=== PATIENT | male | born 1975 | race Caucasian/White ===

== ENCOUNTER 2023-05-10 07:47 | Outpatient (AMB) | payer OTHER, SELFPAY ==
--- NOTE | 2023-05-10 07:56 | MHC.OFFVIS ---
Intake Vital Signs 05/10/23 08:10 Height 5 ft 5 in Weight 195 lb BMI 32.4 BP 137/85 Blood Pressure Location Lt brachial Position Sitting Respiration 14 Pulse 75 Intake Visit Reasons: pre colonoscopy Intake Note: New consult for 1st pre Colonoscopy screening. Patient cc: Abdominal discomfort, acid reflex, and between diarrhea and constipation due linzess. 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 Lee He has never had a colonoscopy- Bowels- constipation- Linzess-for the past 3 months-not consistent pattern- Tried making dietary modifications Appetite is good-no acid reflux, has good coverage has made dietary modification No cardiac or respiratory issues No nausea, vomiting, hematemesis, hematochezia fever chills PFSH Family History Father Hyperlipemia Diabetes Mother No problems noted. Paternal Grandfather Diabetes Paternal Grandmother Diabetes Social History (Updated 05/10/23 @ 08:18 by Taylor Lizama PA-C) Household Members: Spouse Alcohol intake: never Patient Tobacco Use Status: Never used Tobacco Use of substances other than those prescribed or required for medical reasons: No Current occupational status: employed Review of Systems Const All systems reviewed & are unremarkable except as noted in HPI and below Card Denies chest pain and Denies dyspnea Resp Denies dyspnea GI Denies abdominal pain, Reports constipation, Reports heartburn, Denies diarrhea and Denies nausea Physical Exam Vital Signs: Last Vital Signs Pulse 75 05/10/23 08:10 Resp 14 05/10/23 08:10 BP 137/85 05/10/23 08:10 BMI result Body Mass Index 32.4 Const General: cooperative, healthy appearing and comfortable Orientation/consciousness: patient oriented x3 Limitations: no limitations Eyes Sclerae: sclerae normal Resp Effort & Inspection: normal respiratory effort and able to speak in complete sentences Auscultation: clear to auscultation bilaterally, no rales, no rhonchi and no wheezes Cardio Rate: regular rate Rhythm: regular rhythm Heart sounds: S1 normal heart sound present and S2 normal heart sound present GI Palpation (GI): Soft to palpation and nontender Auscultation: normal bowel sounds Skin General skin exam: no rashes or lesions noted Neuro General: patient oriented x3 Extrem General: Yes full ROM Psych Appearance: grossly normal and well kempt Mental Status: mental status grossly normal Speech and movement: Normal speech and movement present and Clear speech present Affect: normal affect Attitude: cooperative Thought process: Normal thought process present Thought content: Normal thought content present Insight: Good insight present (Psych) Judgement: Good judgement present (Psych) Assessment & Plan Assessment & Plan (1) 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 due for EGD Code(s): K22.70 - Do's esophagus without dysplasia Plan: EGD Do's surveillance (2) Chronic constipation: Code(s): K59.09 - Other constipation Plan: Consistent bowel regimen Maintain high-fiber diet (3) Encounter for screening colonoscopy: Code(s): Z12.11 - Encounter for screening for malignant neoplasm of colon Plan EGD- Barretts- surveillance Index screeningColonoscopy MG split prep Continue usual medication-omit metformin evening before procedures and no diabetes medications morning of procedure Orders: Orders EGD/[facility] Combo - GI Use Only Today K22.70 - Do's esophagus without dysplasia, K59.09 - Other constipation, Z12.11 - Encounter for screening for malignant neoplasm of colon Medications: New bisacodyl (Dulcolax (bisacodyl)) Take 4 tablets by mouth at 12:00pm the day before your procedure. 20 mg (4 x 5 mg) PO ONCE 4 tabs 0RF colonoscopy prep 1 day Z12.11 - Encounter for screening for malignant neoplasm of colon polyethylene glycol 3350 (Miralax) Take as directed by mouth the day before your procedure. 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
[2023-05-10 08:10] VITALS: BP 137/85; PULSE 75; RESP 14; BMI 32.4
== END 2023-05-10 08:35 | disposition home or self-care (01) ==
PROVIDERS: PCP Hospitalist; Visit Provider Physician Assistant
DX: K22.70 Barrett's esophagus without dysplasia (principal); K59.09 Other constipation; Z12.11 Encounter for screening for malignant neoplasm of colon
CPT/HCPCS: 99203

== ENCOUNTER → 2023-05-10 07:47 | Outpatient (BNVA) | payer OTHER, SELFPAY | PROVIDERS: PCP Hospitalist; Visit Provider Physician Assistant ==

== ENCOUNTER 2023-08-17 06:06 | Day surgery (SDC) | payer OTHER, SELFPAY ==
[2023-08-15 09:12] VITALS: BMI 32.4
--- NOTE | 2023-08-16 14:26 | P.CONAN_ITS ---
Documented by User: Laurie Santillan NP 08/16/23 14:26 HPI - Anesthesia Eval Consult details Narrative: 48yo M for Upper Endoscopy and Colonoscopy PMF Active Problems Active Problems: All Active Problems (Updated 05/10/23 @ 11:09 by Taylor Lizama PA-C) Diabetes (Acute) Encounter for screening colonoscopy (Acute) Chronic constipation (Acute) Do's esophagus determined by biopsy (Acute) Past Medical History Medical History Hypercholesteremia Hypertension Diabetes Family History Family History Father Hyperlipemia Diabetes Mother No problems noted. Paternal Grandfather Diabetes Paternal Grandmother Diabetes Surgical History Surgical History [place] teeth removed Hx of esophagogastroduodenoscopy Social History Social History Household Members: Spouse Alcohol intake: never Patient Tobacco Use Status: Never used Tobacco Current occupational status: employed Meds Allergies Allergy/AdvReac Type Severity Reaction Status Date / Time No Known Allergies Allergy Verified 08/17/23 06:50 Home Medications Medication Instructions Recorded Confirmed Last Taken Type atorvastatin 20 mg tablet 20 mg PO BEDTIME 05/10/23 08/17/23 Unknown History empagliflozin 10 mg tablet 10 mg PO DAILY 05/10/23 08/17/23 Unknown History (Jardiance) esomeprazole magnesium 20 mg 20 mg PO DAILY 05/10/23 08/17/23 Unknown History capsule,delayed release (Nexium) fluticasone propionate 50 1 spray intranasal BID 05/10/23 08/17/23 Unknown History mcg/actuation nasal spray,suspension (Flonase Allergy Relief) linaclotide 72 mcg capsule 72 mcg PO DAILY 05/10/23 08/17/23 Unknown History (Linzess) lisinopril 2.5 mg tablet 2.5 mg PO DAILY 05/10/23 08/17/23 Unknown History loratadine 10 mg tablet (Claritin) 10 mg PO DAILY 05/10/23 08/17/23 Unknown History metformin 500 mg tablet 500 mg PO BID 05/10/23 08/17/23 Unknown History multivitamin 1 tab PO DAILY 05/10/23 08/17/23 Unknown History Exam Height,Weight and Vital Signs: Height 5 ft 5 in Weight 88.451 kg Assessment and Plan Assessment Anesthesia Assessment: Chart Reviewed Documented by User: Jailyn Bruner MD 08/17/23 08:12 PMFSH Active Problems Active Problems: All Active Problems (Updated 08/17/23 @ 07:23 by Jailyn Bruner MD) Diabetes (Acute) Encounter for screening colonoscopy (Acute) Chronic constipation (Acute) Do's esophagus determined by biopsy (Acute) Denies ABNER Past Medical History Medical History Hypercholesteremia Hypertension Diabetes Family History Family History Father Hyperlipemia Diabetes Mother No problems noted. Paternal Grandfather Diabetes Paternal Grandmother Diabetes Family history of problems with anesthesia: No Surgical History Surgical History [place] teeth removed Hx of esophagogastroduodenoscopy History of Problems with Anesthesia: No Social History Social History Household Members: Spouse Alcohol intake: never Patient Tobacco Use Status: Never used Tobacco Current occupational status: employed Meds Allergies Allergy/AdvReac Type Severity Reaction Status Date / Time No Known Allergies Allergy Verified 08/17/23 06:50 Home Medications Medication Instructions Recorded Confirmed Last Taken Type atorvastatin 20 mg tablet 20 mg PO BEDTIME 05/10/23 08/17/23 Unknown History empagliflozin 10 mg tablet 10 mg PO DAILY 05/10/23 08/17/23 Unknown History (Jardiance) esomeprazole magnesium 20 mg 20 mg PO DAILY 05/10/23 08/17/23 Unknown History capsule,delayed release (Nexium) fluticasone propionate 50 1 spray intranasal BID 05/10/23 08/17/23 Unknown History mcg/actuation nasal spray,suspension (Flonase Allergy Relief) linaclotide 72 mcg capsule 72 mcg PO DAILY 05/10/23 08/17/23 Unknown History (Linzess) lisinopril 2.5 mg tablet 2.5 mg PO DAILY 05/10/23 08/17/23 Unknown History loratadine 10 mg tablet (Claritin) 10 mg PO DAILY 05/10/23 08/17/23 Unknown History metformin 500 mg tablet 500 mg PO BID 05/10/23 08/17/23 Unknown History multivitamin 1 tab PO DAILY 05/10/23 08/17/23 Unknown History Exam Height,Weight and Vital Signs: Height 5 ft 5 in Weight 88.451 kg Vital Signs Temp Pulse Resp BP Pulse Ox O2 Del Method 08/17/23 06:28 97.6 F 85 18 145/96 H 97 Room Air Pertinent Lab Results Pertinent Lab Results: Lab Results 08/17/23 Range/Units 06:34 POC Glucose 154 H (60-115) mg/dL Airway Mallampati Class: III TM Dist: >3cm Neck ROM: Full Loose/Missing/Broken Teeth: No (Denies broken, loose, missing teeth) Heart: RRR Lungs: CTAB Other: Contact lenses in. Sleeps with them Assessment and Plan Assessment Anesthesia Assessment: Anesthesia Plan Discussed Final Anesthetic Review Family History of Problems with Anesthesia: No History of Problems with Anesthesia: No NPO: Yes ASA Class: II Final Preanesthetic Review: No Changes in Pt Med Stat, Meds/Allgs Chart Reviewed, Consent Obtained/Reviewed and Anes Risks/Benef Reviewed Patient Risk: Low Procedure Risk: Low Assessment/Block/Sedation in SS: Assess/Block/Sedation-SS Anesthetic Plan Anesthetic Plan: MAC: Disposition: Standard PACU
--- NOTE | 2023-08-17 06:07 | MHC.SHP ---
Pre-Procedural Eval Section A Date of Service: 08/17/23 Section B Chief Complaint: Do's esophagus without dysplasia Relevant Family History (Specify if Yes): No Relevant Social History: Tobacco Use (occ cigar) Present Medications: see Short Stay Collaborative assessment Medical History: Significant History (Hypercholesteremia Hypertension Diabetes) History of Previous Operations: Relevant previous surgery/procedure and date(s) (egd) Allergies: Allergies Allergy/AdvReac Type Severity Reaction Status Date / Time No Known Allergies Allergy Verified 05/10/23 07:54 Review of Systems Sugical H&P ROS: Negative: Constitution, Cardiovascular, Respiratory, Neurological, Psychiatric, Hem-Onc, Allergic/Immunologic, Gastrointestinal, Genitourinary, Musculoskeletal, Integumentary, Endocrine and Eyes/Ears/Nose/Throat Exam Surgical H&P Exam: Normal: HEENT, Normal: Heart, Normal: Lungs, Normal: Extremities, Normal: Abdomen, Normal: Skin and Normal: Neurological Plan Diagnosis/Plan: Unchanged I have reviewed the history and physical and performed a pertinent physical examination on my patient. No changes have occurred unless specified. Time Spent With Patient Time: Total time managing care of this patient today ____ minutes.
[2023-08-17 06:18] VITALS: BMI 32.8
[2023-08-17] MEDS: Lactated Ringers 1,000 ML 100 ML IVCONT (06:27)
[2023-08-17 06:28] VITALS: BP 145/96; PULSE 85; RESP 18; TEMP 36.4; O2SAT 97
[2023-08-17 06:39] LABS: Glucose, Whole Blood 154 mg/dL (60-115)
--- NOTE | 2023-08-17 08:00 | P.OP_ITS ---
Operative Note Operative Note Date of Service: 08/17/23 Narrative: Operative Information Procedure Description: EGD, Colonoscopy Indication: hx of barretts and colon screening Anesthesia: MAC FLEXIBLE TRANSORAL UPPER GASTROINTESTINAL ENDOSCOPY AND COLONOSCOPY PROCEDURE NOTE UPPER ENDOSCOPY Consent: Indications for the procedure and potential complications of bleeding, perforation, reaction to medications and missed diagnosis were discussed with the patient and informed consent was obtained. Instrument: Olympus GIF H 190 J mid size upper endoscope Monitoring: Vital signs and clinical assessment, continuous EKG monitoring, Pulse oximetry, Carbon Dioxide monitoring and blood pressure monitoring were done throughout the procedure. Procedure: The patient was placed in the left lateral decubitis position and pre-procedure medications were administered and a bite block was placed. The endoscope was inserted into the mouth and advanced under direct vision to the third part of duodenum. A careful inspection was made as the upper endoscope was withdrawn including a retroflexed examination of the proximal stomach; Findings and interventions are described below. Findings: Larynx:normal Esophagus: GE junction at 38 cm, diaphragm hiatus at 38 cm, island of salmon pink mucosa noted bx taken as well as from GEJ and distal esophagus --LES was lax Stomach: Patchy erythema. Biopsies were obtained. Grade 2 flap valve on retroflexed examination of the cardia. Duodenum: Normal bulb and descending duodenum, Intervention: Biopsies as noted above COLONOSCOPY Instrument: Olympus variable stiffness ADULT scope 190L Colonoscopy Monitoring: Vital signs and clinical assessment, continuous EKG monitoring, Pulse oximetry, Carbon Dioxide monitoring and blood pressure monitoring were done throughout the procedure. Colon withdrawal time was 9 minutes. Procedure: The patient was placed in the left lateral decubitis position and pre-procedure medications were administered. After a digital rectal examination of the ano-rectum, the video colonoscope was inserted into the rectum and advanced through the colon to the cecum/TI. The colonoscope was slowly withdrawn in a retrograde panoramic fashion and the colon mucosa was carefully examined including a retroflexed view of the rectum. Findings and interventions are described below. Procedure Difficulty:easy Findings: Terminal Ileum-normal Cecum:normal Ascending Colon: normal Transverse Colon -normal Descending Colon:normal Sigmoid Colon: normal Rectum: Retroflexion with small internal hemorrhoids, grade I Anorectum - normal Colon preparation: [place] Bowel Preparation Scale Right colon; 2 Transverse colon: 2 Left colon; 2 (0 = Unprepared colon segment with mucosa not seen due to solid stool that cannot be cleared. 1 = Portion of mucosa of the colon segment seen, but other areas of the colon segment not well seen due to staining, residual stool and/or opaque liquid. 2 = Minor amount of residual staining, small fragments of stool and/or opaque liquid, but mucosa of colon segment seen well. 3 = Entire mucosa of colon segment seen well with no residual staining, small fragments of stool or opaque liquid) Impression and Post Procedure Diagnosis: Endoscopy Findings: lax LES gastritis barretts esophagus Colonoscopy Findings: internal hemorrhoids Plan: Await Pathology results Repeat Colonoscopy in 10 years or earlier if clinically indicated High fiber diet leaflet avoid straining at stool, epsom salts and sitz bath, anusol supps or cream GERd precautions, cont with PPI repeat EGD in 3-5 yrs or earlier if needed Above findings were reviewed with the patient and relevant handouts were provided if indicated.
[2023-08-17 08:05] VITALS: BP 118/78; PULSE 73; RESP 18; TEMP 36.9; O2SAT 97
[2023-08-17 08:22] VITALS: BP 139/91; PULSE 67; RESP 17; TEMP 36.9; O2SAT 96
== END 2023-08-17 08:41 | disposition home or self-care (01) ==
PROVIDERS: PCP Hospitalist; Visit Provider Internal Medicine Gastroenterology
PROC: (CPT 45378; principal; 2023-08-17 07:30)
DX: Z12.11 Encounter for screening for malignant neoplasm of colon (principal); K64.0 First degree hemorrhoids; K59.09 Other constipation; K22.70 Barrett's esophagus without dysplasia; K22.4 Dyskinesia of esophagus; K29.70 Gastritis, unspecified, without bleeding; K44.9 Diaphragmatic hernia without obstruction or gangrene; I10 Essential (primary) hypertension; E78.00 Pure hypercholesterolemia, unspecified; E11.9 Type 2 diabetes mellitus without complications; Z79.51 Long term (current) use of inhaled steroids; Z79.899 Other long term (current) drug therapy; Z79.84 Long term (current) use of oral hypoglycemic drugs
CPT/HCPCS: 45378; 43239; 82947; 88305; 88342; J2704

== ENCOUNTER → 2023-08-17 06:06 | Outpatient (BNV) | payer OTHER, SELFPAY | PROVIDERS: PCP Hospitalist; Visit Provider Internal Medicine Gastroenterology | DX: Z12.11 Encounter for screening for malignant neoplasm of colon (principal); K22.70 Barrett's esophagus without dysplasia; K64.0 First degree hemorrhoids | CPT/HCPCS: 43239; 45378 ==

== ENCOUNTER 2023-09-14 11:16 | Outpatient (AMB) | payer OTHER, SELFPAY ==
--- NOTE | 2023-09-14 11:19 | MHC.OFFVIS ---
Intake Vital Signs 09/14/23 11:22 Height 5 ft 5 in Weight 195 lb BMI 32.4 BP 145/87 H Blood Pressure Location Lt brachial Position Sitting Pulse 71 Intake Visit Reasons: colo resullts Intake Note: Follow up for Colonoscopy results. Patient denies any GI issues. 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 Accompanied by: Self / Same As Patient Allergies No Known Allergies Allergy (Verified 09/14/23 11:19) Medication List - Last Reconciled 09/14/23 by Taylor Lizama PA-C atorvastatin 20 mg PO BEDTIME empagliflozin (Jardiance) 10 mg PO DAILY esomeprazole magnesium (Nexium) 20 mg PO DAILY fluticasone propionate 50 mcg/actuation (Flonase Allergy Relief) 1 spray intranasal BID linaclotide (Linzess) 72 mcg PO DAILY lisinopril 2.5 mg PO DAILY loratadine (Claritin) 10 mg PO DAILY metformin 500 mg PO BID multivitamin 1 tab PO DAILY pantoprazole 40 mg (2 x 20 mg) PO ONCE PRN 30 days HPI HPI Comments History of Present Illness Details A 48 y/o male with hx [id number] after EGD and colonoscopy with Dr. Silverio He tolerated procedures well-complements to GI from beginning to end-happy with his experience He has no GI complaints at all Appetite is good-consistent with PPI b.i.d. however would like to take once daily Bowels constipation intermittently, he uses Linzess p.r.n. with very good response Reviewed procedure report, pathology and recommendations-opportunity for question No nausea, vomiting, diarrhea, hematemesis, hematochezia fever chills PFSH Medical History (Updated 09/14/23 @ 11:56 by Taylor Lizama PA-C) IBS (irritable bowel syndrome) GERD (gastroesophageal reflux disease) Hypercholesteremia Hypertension Diabetes Surgical History [place] teeth removed Hx of esophagogastroduodenoscopy Family History Father Hyperlipemia Diabetes Mother No problems noted. Paternal Grandfather Diabetes Paternal Grandmother Diabetes Social History Household Members: Spouse Alcohol intake: never Patient Tobacco Use Status: Never used Tobacco Current occupational status: employed Review of Systems Const All systems reviewed & are unremarkable except as noted in HPI and below Card Denies chest pain and Denies dyspnea Resp Denies dyspnea GI Denies abdominal pain, Denies hematochezia and Reports constipation Physical Exam Vital Signs: Last Vital Signs Pulse 71 09/14/23 11:22 BP 145/87 H 09/14/23 11:22 BMI result Body Mass Index 32.4 Const General: cooperative, healthy appearing, comfortable and no acute distress Orientation/consciousness: patient oriented x3 Limitations: no limitations Eyes Sclerae: sclerae normal Resp Effort & Inspection: normal respiratory effort and able to speak in complete sentences Skin General skin exam: no rashes or lesions noted Neuro General: patient oriented x3 Extrem General: Yes full ROM Psych Appearance: grossly normal and well kempt Mental Status: mental status grossly normal Speech and movement: Normal speech and movement present and Clear speech present Affect: normal affect Attitude: cooperative Thought content: Normal thought content present Insight: Good insight present (Psych) Judgement: Good judgement present (Psych) Results Reviewed Results Reviewed: Impression and Post Procedure Diagnosis: Endoscopy Findings: lax LES gastritis barretts esophagus Colonoscopy Findings: internal hemorrhoids Plan: Await Pathology results Repeat Colonoscopy in 10 years or earlier if clinically indicated High fiber diet leaflet avoid straining at stool, epsom salts and sitz bath, anusol supps or cream GERd precautions, cont with PPI repeat EGD in 3-5 yrs or earlier if needed Name: Corey Chavez Age/Sex: 48/M Attending: Marcello Silverio MD : 1975 Submitted by: Marcello Silverio MD Copies to: Cecy Varela MD MR #: [id number] Status: [facility] Collected: 08/17/23 Location: [facility] Received: 08/17/23 Diagnosis A. Stomach, biopsy: Gastric antral and body mucosa within normal limits; negative for Helicobacter pylori, intestinal metaplasia and dysplasia. B. Gastroesophageal junction, biopsy: Squamous and columnar junctional mucosa with mild chronic inflammation; negative for intestinal metaplasia and dysplasia. C. Esophagus, distal, biopsy: Squamous mucosa within normal limits; negative for inflammation (including intraepithelial eosinophils), fungal organisms, intestinal metaplasia and dysplasia. Clinical History Pre-Op Dx: Do's, screening Post-Op Dx: Upper: Do's, LAX LES, gastritis; Lower: internal hemorrhoids Microscopic Description Microscopic sections reviewed. Material Received A. Bx stomach B. Bx GE junction C. Bx distal esophagus Gross Description Received in 3 parts. Part A: Received in formalin labeled ?bx stomach? are 3 suazo-pink irregular tissue fragments each measuring 0.2 cm, submitted in toto in a cassette labeled A. Part B: Received in formalin labeled ?bx GE junction? are 6 sauceda-white and suazo-pink irregular tissue fragments ranging from 0.1-0.2 cm, submitted in toto in a cassette labeled B. Part C: Received in formalin labeled ?bx distal esophagus? are 2 sauceda-pink irregular tissue fragments measuring 0.2 and 0.3 cm, submitted in toto in a cassette labeled C. CEDS Special stains ordered and performed: Immunostain for Helicobacter pylori on A. 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 Stomach, biopsy: Gastric antral and body mucosa within normal limits; negative for Helicobacter pylori, intestinal metaplasia and dysplasia. B. Gastroesophageal junction, biopsy: Squamous and columnar junctional mucosa with mild chronic inflammation; negative for intestinal metaplasia and dysplasia. C. Esophagus, distal, biopsy: Squamous mucosa within normal limits; negative for inflammation (including intraepithelial eosinophils), fungal organisms, intestinal metaplasia and dysplasia. Clinical History Pre-Op Dx: Do's, screening Post-Op Dx: Upper: Do's, LAX LES, gastritis; Lower: internal hemorrhoids Code(s): K22.70 - Do's esophagus without dysplasia Plan: Repeat EGD 3-5 years-will place reminder for 3 years Pantoprazole 40 mg daily, he may call for refills or any issue with with coverage (2) Gastritis: Code(s): K29.70 - Gastritis, unspecified, without bleeding Plan: Continue PPI Avoid culprits (3) Hemorrhoids: Code(s): K64.9 - Unspecified hemorrhoids Plan: Avoid straining ,high-fiber diet (4) Chronic constipation: Code(s): K59.09 - Other constipation Plan: Maintain high-fiber diet Plan Repeat EGD 3-5 years-will place reminder for 3 years Asymptomatic colonoscopy 10 years Pantoprazole 40 mg daily, he may call for refills or any issue with with coverage Maintain high-fiber diet Medications: New pantoprazole 40 mg (2 x 20 mg) PO ONCE PRN 60 tabs 11RF Barretts 30 days Patient Instructions: Repeat EGD 3-5 years-will place reminder for 3 years Pantoprazole 40 mg daily, he may call for refills or any issue with with coverage Maintain high-fiber diet Repeat asymptomatic colonoscopy 10 years Coding Level of Care Code Est Pt Level 3 (04149) Diagnoses 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
[2023-09-14 11:22] VITALS: BP 145/87; PULSE 71; BMI 32.4
== END 2023-09-14 13:29 | disposition home or self-care (01) ==
PROVIDERS: PCP Hospitalist; Visit Provider Physician Assistant
DX: K22.70 Barrett's esophagus without dysplasia (principal); K29.70 Gastritis, unspecified, without bleeding; K64.9 Unspecified hemorrhoids; K59.09 Other constipation
CPT/HCPCS: 99213

== ENCOUNTER → 2023-09-14 11:16 | Outpatient (BNVA) | payer OTHER, SELFPAY | PROVIDERS: PCP Hospitalist; Visit Provider Physician Assistant ==